=== PATIENT | female | born 1985 | race African-American/Black ===

== ENCOUNTER 2021-07-30 14:24 | Emergency (ER) | payer MEDICAID ==
[~2021-07-30] VITALS: Ht 167.6 cm; Wt 63.0 kg
[~2021-07-30 14:24] MED LIST: ALBUTEROL; HYDR-1348 PO; ONDA4TAB5 PO; SULF-165 PO
[2021-07-30] MEDS ORDERED: HYDROCODONE/ACETAMINOPHEN 5/325MG TABLET PO STA (15:32)
[2021-07-30 16:36] LABS: HCG SCREEN NEGATIVE
[2021-07-30] MEDS ORDERED: T3 PO (18:18)
[2021-07-30] MEDS ORDERED: IBUP-2029 PO (18:18)
[2021-07-30] MEDS ORDERED: AMOX-494 PO (18:18)
[2021-07-30 18:50] VITALS: BP 116/87
== END 2021-07-30 18:51 | disposition home or self-care (01) ==
LOC: ER 14:30
DX: S00.83XA Contusion of other part of head, initial encounter (principal); S03.2XXA Dislocation of tooth, initial encounter; F12.10 Cannabis abuse, uncomplicated; M25.562 Pain in left knee; V00.831A Fall from motorized mobility scooter, initial encounter; Y93.89 Activity, other specified; Y92.89 Other specified places as the place of occurrence of the external cause; Y99.8 Other external cause status
CPT/HCPCS: 70486; 73562; 84703; 99285